=== PATIENT | male | born 1945 | race American Indian/Alaskan Native ===

== ENCOUNTER 2017-10-24 22:47 | Emergency (ER) | payer MEDICARE ==
--- NOTE | 2017-10-25 01:28 | Emergency Department Report ---
ED Seizure HPI - General Chief Complaint: Seizure Stated Complaint: SEIZURE/AMS Time Seen by Provider: 10/25/17 00:50 Source: patient Mode of arrival: Stretcher Limitations: No Limitations - History of Present Illness MD Complaint: seizure Onset/Timin (hour ago) -: Sudden Witnessed:: Yes Trauma: No Seizure History: other (had one episode of seizure about a month and did not follow up with doctor) Possible Precipitating Event: none Associated Symptoms: other (right hip pain) Treatments Prior to Arrival: none - Related Data Previous Rx's Medication Instructions Recorded Last Taken Type levETIRAcetam [Keppra] 500 mg PO BID #60 tablet 10/25/17 Unknown Rx Allergies Allergy/AdvReac Type Severity Reaction Status Date / Time No Known Allergies Allergy Unverified 12/28/15 18:14 ED Review of Systems ROS: Stated complaint: SEIZURE/AMS Other details as noted in HPI Comment: All other systems reviewed and negative ED Past Medical Hx - Past Medical History Previous Medical History?: Yes Hx Hypertension: Yes Hx Seizures: Yes - Surgical History Past Surgical History?: No - Social History Smoking Status: Current Some Day Smoker Substance Use Type: Marijuana - Medications Home Medications: Home Medications Medication Instructions Recorded Confirmed Last Taken Type levETIRAcetam [Keppra] 500 mg PO BID #60 tablet 10/25/17 Unknown Rx ED Physical Exam - General Limitations: No Limitations General appearance: alert, in no apparent distress - Head Head exam: Present: atraumatic, normocephalic - Eye Eye exam: Present: normal appearance. Absent: conjunctival injection - ENT ENT exam: Present: mucous membranes moist, normal external ear exam - Neck Neck exam: Present: normal inspection - Respiratory Respiratory exam: Present: normal lung sounds bilaterally. Absent: respiratory distress - Cardiovascular Cardiovascular Exam: Present: regular rate, normal rhythm. Absent: systolic murmur, diastolic murmur, rubs, gallop - GI/Abdominal GI/Abdominal exam: Present: soft, normal bowel sounds - Extremities Exam Extremities exam: Present: normal inspection. Absent: pedal edema - Back Exam Back exam: Present: normal inspection - Neurological Exam Neurological exam: Present: alert, oriented X3, CN II-XII intact - Psychiatric Psychiatric exam: Present: normal affect, normal mood - Skin Skin exam: Present: warm, dry, intact, normal color. Absent: rash ED Course Vital Signs 10/25/17 00:40 Temperature 97.8 F Pulse Rate 83 Respiratory 20 Rate Blood Pressure 152/105 Blood Pressure 152/105 [Left] O2 Sat by Pulse 96 Oximetry ED Medical Decision Making - Lab Data Result diagrams: 10/25/17 01:14 10/25/17 01:14 Critical care attestation.: If time is entered above; I have spent that time in minutes in the direct care of this critically ill patient, excluding procedure time. ED Disposition Clinical Impression: Seizure Disposition: DC- TO HOME OR SELFCARE Is pt being admited?: No Does the pt Need Aspirin: No Condition: Stable Instructions: Recurrent Seizures Adult (ED) Prescriptions: levETIRAcetam [Keppra] 500 mg PO BID #60 tablet Referrals: RAFI IYER MD [Primary Care Provider] - 3-5 Days RIK PERALTA MD [Staff Physician] - 3-5 Days (recurrent seizure) Time of Disposition: 03:39 Print Language: ALBANIAN
[2017-10-25 01:41] LABS: Basophils % (Auto) 0.4 % (0.0-1.8); Eosinophils % (Auto) 0.2 % (0.0-4.3); Hematocrit 45.5 % (35.5-45.6); Hemoglobin 15.3 gm/dl (11.8-15.2); Lymphocytes # (Auto) 1.7 K/mm3 (1.2-5.4); Mean Corpuscular HGB Conc 34 % (32-34); Mean Corpuscular Hemoglobin 32 pg (28-32); Mean Corpuscular Volume 95 fl (84-94); Monocytes # (Auto) 0.7 K/mm3 (0.0-0.8); Monocytes % (Auto) 6.2 % (0.0-7.3); Platelet Count 255 K/mm3 (140-440); Red Blood Count 4.81 M/mm3 (3.65-5.03); Red Cell Distribution Width 15.9 % (13.2-15.2)
[2017-10-25 02:01] LABS: Alanine Aminotransferase 8 units/L (7-56); BUN/Creatinine Ratio 17; Blood Urea Nitrogen 12 mg/dL (9-20); Calcium 9.6 mg/dL (8.4-10.2); Hemolysis Index 15
--- NOTE | 2017-10-25 02:14 | Cat Scan Report ---
FINAL REPORT EXAM: CT HEAD/BRAIN WO CON HISTORY: seizure COMPARISON: CT of the head from December 2015. TECHNIQUE: Axial images obtained skull base through vertex. FINDINGS: No acute intracranial hemorrhage, midline shift or pathologic extra axial fluid collection. Age related volume loss with compensatory dilatation of the ventricular system and chronic small vessel ischemic disease. New from prior study there is a focal area of low attenuation left bianca. This is well demarcated compatible with remote infarct measuring 1.0 x 0.8 centimeters. Stable remote lacunar infarct of the left internal capsule. Benign calcification bilateral basal ganglia. Otherwise, cm-white differentiation preserved. Calvarium grossly intact. Visualized ocular globes are unremarkable. Minimal mucosal thickening ethmoid air cells. Mastoid air cells are clear. IMPRESSION: No grossly acute intracranial abnormality. Mild to moderate age related volume loss and chronic small vessel ischemic disease. Moderately advanced chronic small vessel ischemic disease. 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 Chronic left pontine infarct.
[2017-10-25] MEDS ORDERED: KEPPRA 1,000 MG/NS 0.75% 100ML 1,000 MG/100 ML BAG IV ONE (03:00)
[2017-10-25 05:15] VITALS: BP 152/116
== END 2017-10-25 05:15 | disposition home or self-care (01) ==
LOC: ED 22:47
DX: R56.9 Unspecified convulsions (principal); I10 Essential (primary) hypertension; F17.200 Nicotine dependence, unspecified, uncomplicated; F12.10 Cannabis abuse, uncomplicated
CPT/HCPCS: 36415; 70450; 80053; 83735; 85025; 96365; 99284; J1953